=== PATIENT | male | born 2005 | race American Indian/Alaskan Native ===

== ENCOUNTER → 2025-03-05 | Emergency (ER) | payer OTHER | END | disposition home or self-care (01) | LOC: ER 15:50 | DX: S99.822A Other specified injuries of left foot, initial encounter (principal); S69.82XA Other specified injuries of left wrist, hand and finger(s), initial encounter; S69.81XA Other specified injuries of right wrist, hand and finger(s), initial encounter; W56.89XA Other contact with other nonvenomous marine animals, initial encounter; Y93.89 Activity, other specified; Y92.832 Beach as the place of occurrence of the external cause ==